=== PATIENT | female | born 1980 | race Hispanic/Latino ===

== ENCOUNTER 2017-11-18 19:27 | Emergency (ER) | payer OTHER ==
[2017-11-18 20:18] LABS: #Eosinphils 0.2 thou/uL (0.0-0.7); #Lymphocytes 1.4 thou/uL (1.20-3.40); #Monocytes 0.4 thou/uL (0.11-0.59); %Basophils 0.1 % (0.0-1.0); %Eosinophils 2.2 % (0.0-10.0); %Lymphocytes 17.9 % (21.0-51.0); %Monocytes 4.6 % (0.0-10.0); %Neutrophils 75.2 % (42.0-75.0); Hemoglobin 11.8 g/dL (12.0-16.0); Mean Corpuscular HGB CONC 36.6 g/dL (32.0-36.0); Mean Corpuscular Hemoglobin 32.4 pg (27.0-31.0); Mean Corpuscular Volume 88.7 fl (81.0-99.0); Mean Platelet Volume 6.2 fL (7.4-10.4); Platelet Count 252 thou/uL (130-400); RBC Distribution Width 11.9 % (11.5-14.5); Red Blood Cell (RBC) Count 3.65 mill/uL (4.20-5.40)
[2017-11-18 20:36] LABS: Bilirubin Negative (Negative); Blood, Urine Small (Negative); Clarity CLEAR (Clear); Glucose, Urine (Dipstick) Negative (Negative); Leukocyte Negative (Negative); Nitrite Negative (Negative); Protein, Urine (Dipstick) Negative (Neg-Trace); Specific Gravity, Urine 1.027 (1.002-1.036)
[2017-11-18 20:38] LABS: Bacteria/HPF Rare-Few HPF (None Seen); Hyaline Casts/LPF 0-3 HYALINE CAST LPF (0-3 Hyaline); Pathc Cast-AUWi Flag 0.29 (0-2.49); Squamous Epithelial 0-3 HPF (0-3); WBC/HPF 0-3 HPF (0-3)
--- NOTE | 2017-11-18 21:57 | ULT ---
OB ULTRASOUND: INDICATIONS: patient with vaginal spotting. FINDINGS: There is a live intrauterine gestation with cardiac activity documented at 145 beats per minute . Sonographic imaging corresponds to an approximately 15 week 4 day gestational age. motion i s noted by the assistant credit manager. IMPRESSION: Live intrauterine gestation, as discussed above. Age appropriate imaging followup is recommended. POS: JESU
== END 2017-11-18 23:04 | disposition home or self-care (01) ==
LOC: ERS 19:27
DX: O20.0 Threatened abortion (principal); Z3A.16 16 weeks gestation of pregnancy
CPT/HCPCS: 76815; 81003; 81015; 84702; 85025; 86900; 86901

== ENCOUNTER 2018-04-14 23:59 | Day surgery (SDC) | payer SELFPAY ==
--- NOTE | 2018-04-15 01:41 | PDOC.LDHP ---
Labor and Delivery H&P Chief complaint: other (dysuria) HPI: 37 yo @ 36.3wks by 9 wk tiffanie presents with dysuria since 1800 on . She endorses some hematuria as well. Denies fever, chills, n/v/d. She endorses back pain bilaterally that also started this afternoon. Dating criteria: first trimester ultrasound (9wk) Grav: 4 Para: 2 (2011) OB History Details: 2 prior csections -first was for breech presentation -second was a repeat section Current complications: other (advanced maternal age) Abnormal US findings: No (anterior fundal placenta) Past Medical History: none Current medications: pre- vitamins Previous surgical history: low tranverse CS (x2) Social history: none - Physical Exam Vital signs reviewed and normal: yes General: NAD, resting Heart: RRR Lungs: CTAB Abdomen: gravid (suprapubic tenderness) Extremeties: no edema [place] contractions every: irregular - Vaginal Exam cm dilated: 1 Effacement: 25% Station: -3 - OB Labs Blood type: O RH: positive Antibody Screen: negative HIV: negative RPR: negative HEPSAg: negative 1 hour GCT: negative (137) GBS: unknown Urine drug screen: not done Rubella: immune Additional Labs: gonorrhea/chlamydia negative prior UTI grew gram negative bacilli pap nilm with negative HPV - Plan -: 37 yo @ 36.3wks by 9 wk tiffanie presents with dysuria: #sIUP #suspected UTI -UA and culture ordered and VP3. -Likely a UTI, will send in abx pending UA. <Fannie Velasquez - Last Filed: 04/15/18 03:14> <Betty Caro - Last Filed: 04/16/18 16:19> Allergies/Adverse Reactions: Allergies Allergy/AdvReac Type Severity Reaction Status Date / Time No Known Allergies Allergy Verified 04/15/18 00:28 Review of Systems - Review of Systems Constitutional: denies: chills, fever EENTM: reports: no symptoms reported Respiratory: reports: no symptoms reported Cardiology: reports: no symptoms reported Gastrointestinal/Abdominal: reports: abdominal pain (suprapubic). denies: diarrhea, nausea Genitourinary: reports: dysuria, frequency, pain Musculoskeletal: reports: back pain (bilateral) Skin: reports: no symptoms reported Neurological: reports: no symptoms reported Endocrine: reports: no symptoms reported Hematologic/Lymphatic: reports: no symptoms reported <Fannie Velasquez - Last Filed: 04/15/18 03:14> Attending Addendum - Attending Addendum Date/Time: 04/16/18 2329 I personally evaluated the patient and discussed the management with Dr. Velasquez. I agree with the History, Examination, Assessment and Plan documented above. <Betty Caro - Last Filed: 04/16/18 16:19>
[2018-04-15 02:08] LABS: Bilirubin Negative (Negative); Blood, Urine Trace (Negative); Clarity CLEAR (Clear); Glucose, Urine (Dipstick) Negative (Negative); Leukocyte Negative (Negative); Nitrite Negative (Negative); Protein, Urine (Dipstick) Negative (Neg-Trace); Specific Gravity, Urine 1.012 (1.002-1.036)
[2018-04-15 02:11] LABS: Bacteria/HPF None Seen HPF (None Seen); Hyaline Casts/LPF 0-3 HYALINE CAST LPF (0-3 Hyaline); Pathc Cast-AUWi Flag 0.58 (0-2.49); Squamous Epithelial 0-3 HPF (0-3); WBC/HPF 0-3 HPF (0-3)
== END 2018-04-15 03:51 | disposition home or self-care (01) ==
LOC: L&D/OP 23:59
PROVIDERS: ATTEND Obstetrics & Gynecology
DX: O99.89 Other specified diseases and conditions complicating pregnancy, childbirth and the puerperium (principal); R30.0 Dysuria; Z3A.36 36 weeks gestation of pregnancy
CPT/HCPCS: 51701; 81001; 87086; 87480; 87510; 87660; 99285; A4353

== ENCOUNTER 2018-05-02 20:11 | Inpatient (IN) | payer MEDICAID, OTHER, SELFPAY ==
[2018-05-02 20:44] VITALS: BMI 31.5
[2018-05-02 21:03] LABS: Amnisure Test RUPTURE DETECTED (No Rupture)
[2018-05-02 21:04] LABS: Amnisure Internal Control QC ACCEPTABLE (ACCEPTABLE)
[2018-05-02] MEDS ORDERED: Promethazine HCl 25 MG/ML VIAL IM PRN ×2 (21:20→23:11)
[2018-05-02] MEDS ORDERED: Ondansetron PF 4 MG/2 ML Vial IVP PRN ×2 (21:20→23:11)
[2018-05-02 21:54] LABS: Hemoglobin 9.9 g/dL (12.0-16.0); Mean Corpuscular HGB CONC 33.7 g/dL (32.0-36.0); Mean Corpuscular Hemoglobin 28.5 pg (27.0-31.0); Mean Corpuscular Volume 84.5 fL (78.0-98.0); Mean Platelet Volume 8.7 fL (7.4-10.4); Platelet Count 228 thou/uL (130-400); RBC Distribution Width 12.4 % (11.5-14.5); Red Blood Cell (RBC) Count 3.48 mill/uL (4.20-5.40)
[2018-05-02] MEDS ORDERED: Lactated Ringer's 1,000 ML IV SCH (22:00)
[2018-05-02] MEDS ORDERED: Bicitra 30 ML UDCUP PO SCH ×3 (22:00→22:15)
[2018-05-02] MEDS ORDERED: CEFAZOLIN 2 GM/50 ML BAG ONE (22:05)
[2018-05-02] MEDS ORDERED: CEFAZOLIN/Water 2 GM/20 ML SYRINGE SLOW IVP SCH (22:15)
[2018-05-02] MEDS ORDERED: Morphine PF 1 MG/ML SYR ONE (22:18)
[2018-05-02] MEDS ORDERED: Lidocaine 1% PF 5 ML VIAL ONE (22:18)
[2018-05-02] MEDS ORDERED: Dexamethasone 4 mg/ml Vial ONE (22:18)
[2018-05-02] MEDS ORDERED: Oxytocin 10 UNITS/ML VIAL ONE ×2 (22:18→23:28)
[2018-05-02] MEDS ORDERED: Ondansetron PF 4 MG/2 ML Vial ONE (22:18)
[2018-05-02] MEDS ORDERED: PHENYLEPHRINE-NS 100 MCG/ML 10 ML SYRINGE ONE (22:18)
[2018-05-02] MEDS ORDERED: Ketorolac Tromethamine 30 MG/ML VIAL ONE (22:18)
[2018-05-02] MEDS ORDERED: Bupivacaine 0.75% W/DEXTROSE 8.25% 2 ML AMP ONE (22:18)
--- NOTE | 2018-05-02 22:19 | PDOC.FPROB ---
FMR OB H&P: HPI - History of Present Illness Chief Complaint: Contractions History of Present Illness: This is a 37 yo who presents to OBT with LOF and contractions. Found to have +amnisure and dilated to 3 cm with painful contractions. No f/c/n/v/ ruq or carmen pain or headaches. FMR OB H&P: Current - OB Labs Blood type: O RH: positive Antibody Screen: negative HIV: negative RPR: negative HepBsAg: negative FMR OB H&P: History - Past Medical History PMH: none - OB History OB History: previous cs x 2. 1st for breech 2nd for repeat. - [employer] History [employer] ME[employer] History: noncontributory - Surgical History Sx History: previous ltcs x 2 - Social History Social History: denies darvin - Family History Family History: noncontributory FMR OB H&P: Medications - Current Home Medications: Medication Instructions Recorded Confirmed Type Pnv No.95/Ferrous Fum/Folic AC 1 tablet PO DAILY 04/15/18 04/15/18 History [ Tablet] Allergies/Adverse Reactions: Allergies Allergy/AdvReac Type Severity Reaction Status Date / Time No Known Allergies Allergy Verified 05/02/18 20:32 FMR OB H&P: ROS - Review of Systems General: denies: fever/chills, fatigue Eyes: denies: eye pain, vision changes Cardiovascular: denies: chest pain, palpitation Respiratory: denies: cough, congestion Gastrointestinal: reports: abdominal pain (ctx) Genitourinary (Female): reports: vaginal bleeding Musculoskeletal: denies: pain, stiffness Neurologic: denies: numbness, syncope, weakness Integumentary: denies: rash, discoloration FMR OB H&P: Vital Signs - Maternal Vital signs: Vital Signs - First Documented Temp Pulse Resp BP 98.5 F 46 L 18 138/66 05/02/18 20:30 05/02/18 20:30 05/02/18 20:30 05/02/18 20:30 - Heart Tones Baseline: 130 Variability: moderate Acceleration: present Deceleration: absent Category: category 1 FMR OB H&P: Physical Exam - Physical Exam General: awake, alert and oriented HEENT: normocephalic and atraumatic Heart: RRR, no edema General: CTAB, no respiratory distress Abdomen: soft, gravid Skin: no rash, good tugor FMR OB H&P: Results - Labs Lab results: Laboratory Results - last 24 hr 05/02/18 05/02/18 20:53 21:04 WBC 7.0 RBC 3.48 L Hgb 9.9 L Hct 29.4 L MCV 84.5 MCH 28.5 MCHC 33.7 RDW 12.4 Plt Count 228 MPV 8.7 Amnio Swab Test RUPTURE DETECTED H FMR OB H&P: A/P Disposition: Plan for repeat section. Anesthesia notified. Discussed r/b/a including pain/bleeding/infection/damage to internal organs/transfusion/repeat operation/prolonged hospitalization of repeat and patient voiced understanding and desired to proceed. Discussion: Date/Time: 05/02/182217 This H&P was discussed with [] and [] who agree with the above documentation and plan.
[2018-05-02] MEDS ORDERED: ePHEDrine/0.9% NaCl/PF SYRINGE 50 mg/10 ml ONE (22:37)
[2018-05-02 23:04] LABS: Syphilis Antibody Nonreactive (Nonreactive); Syphilis Antibody Index 0.06 S/CO (<1.00 Non-Reactive)
[2018-05-02] MEDS ORDERED: HYDROmorphone 2 MG/ML VIAL SLOW IVP PRN (23:11)
[2018-05-02] MEDS ORDERED: Eucerin (Mineral Oil/Petrolatum,White) 30 gm Jar TOP PRN (23:11)
[2018-05-02] MEDS ORDERED: Meperidine HCl/PF 25 MG/ML VIAL SLOW IVP PRN (23:11)
[2018-05-02] MEDS ORDERED: L&D-Morphine 4 MG/ML VIAL SLOW IVP PRN (23:11)
[2018-05-02] MEDS ORDERED: Naloxone HCl 0.4 mg/ml Vial IV PRN (23:11)
[2018-05-02] MEDS ORDERED: diphenhydrAMINE 50 MG/ML VIAL IVP PRN (23:11)
[2018-05-02] MEDS ORDERED: Ketorolac Tromethamine 30 MG/ML VIAL IVP PRN (23:11)
[2018-05-02] MEDS ORDERED: Promethazine HCl 25 MG SUPP PR PRN (23:11)
[2018-05-02] MEDS ORDERED: Ondansetron HCl/PF 4 MG/2 ML Vial IVP PRN (23:11)
[2018-05-02] MEDS ORDERED: Naloxone HCl 0.4 mg/ml Vial IVP PRN ×2 (23:11)
[2018-05-02] MEDS ORDERED: Ketorolac Tromethamine 30 MG/ML VIAL IVP SCH (23:15)
[2018-05-02] MEDS ORDERED: Communication Order-Pharmacy FS SCH (23:15)
[2018-05-02] MEDS ORDERED: Fentanyl 100 MCG/2 ML VIAL ONE (23:23)
--- NOTE | 2018-05-02 23:50 | PDOC.OPDEL ---
OB Operative/Delivery Note Delivery Dr/Surgeon: Archie Velasquez Assist: Pre-Delivery Diagnosis: active labor, ruptured membrane Procedure/Post Delivery Dx: primary low transverse CS Weeks gestation: 38 (38.5) Anesthesia: spinal - Findings A Sex: male Weight: 2.995 kg - 1 min: 8 - 5 min: 8 - Additional Findings/Plan Placenta delivered: spontaneous findings: low transverse hysterotomy without extension Estimated blood loss: 1020 Compilations/Other Findings: Date of Procedure: 05/03/18 Resident Surgeon: Ron Attending Surgeon: Pope Almanza Procedure: Repeat low transverse caesarean section Preoperative Diagnosis: 1)Term intrauterine 2)Previous X2 3)AMA Postoperative Diagnosis: 1)Term intrauterine , delivered 2)Previous X2 3)AMA Anesthesia: spinal Indications: The patient is a 37 year old G4,P2012 @ 38.5wks female who presents for active labor and SROM, admitted for medically indicated repeat section. Procedure in Detail: After risks, benefits, and alternatives were explained to the patient, she gave informed consent. Pre-operative antibiotics included Cefazolin 2 gram IV. The patient was taken to the operating room and spinal anesthesia was initiated. She was placed in the supine position with a left tilt and prepped and draped in usual sterile fashion. A Pfannenstiel incision was made with a scalpel and carried down to the level of the fascia which was sharply nicked. The fascial cut was extended bilaterally with Gonzalez sissors. The inferior and superior edges of the cut fascial edges were elevated with Florinda clamps and the underlying rectus muscles were sharply and bluntly dissected free. The recti were divided digitally and retracted manually. The peritoneum was entered bluntly and retracted manually. Bladder blade was placed. Gross adhesions noted upon entering the peritoneum. A left bladder adhesion to the uterus was noted. Bladder flap was created with Metzenbaum scissors. A low transverse score was made with the scalpel and the uterus was entered in the midline with the scalpel. Clear fluid was seen. The hysterotomy was extended manually. The was noted to be vertex and was delivered by fundal pressure. Mouth and nares were bulb suctioned. Cord clamped and cut and grossly normal male infant was handed to waiting nurse. Cord blood was obtained. Placenta was spontaneously extracted, found to be intact with 3 vessel cord and discarded. The uterus was externalized and the endometrium was curetted with a dry lap. The bladder blade was replaced and the uterus was closed with a running locking #1 Monocryl suture. Following this two figure of eight stitches were thrown using #1 Monocryl and hemostasis obtained. Methylene blue was used to irrigate the bladder and the bladder was found to be intact without leakage of fluid. The uterus was internalized and the hysterotomy was again noted to be hemostatic. The fascia was closed with a running non-locking 0-PDS suture. The subcutaneous tissue was irrigated and there were several bleeders that were easily bovied with good hemostasis. The skin was approximated with lawson and a pressure dressing was placed. All counts were correct. The patient tolerated the procedure well and was taken to the recovery room in stable condition. Estimated Blood Loss: 1020 Complications: None Findings: Grossly normal male with Apgars of 9 and 9. Grossly normal placenta with 3 vessel cord discarded. Drains: Hamm to gravity draining clear urine. Post delivery plan: recovery in LICU
[2018-05-03] MEDS ORDERED: Promethazine HCl 25 MG/ML VIAL ONE (00:16)
[2018-05-03 00:48] LABS: HIV 1/2 INDEX 0.09 S/CO (<1.00)
[2018-05-03 01:48] LABS: HIV (1/2) Antibody/Antigen NonReactive (NonReactive)
[2018-05-03] MEDS ORDERED: Misoprostol 200 MCG TAB PR PRN (02:16)
[2018-05-03] MEDS ORDERED: Bisacodyl 10 MG SUPP PR PRN (02:16)
[2018-05-03] MEDS ORDERED: NS / Oxytocin 40 units/1000ml 1,000 ML IV SCH (02:16)
[2018-05-03] MEDS ORDERED: Ondansetron PF 4 MG/2 ML Vial IVP PRN (02:16)
[2018-05-03] MEDS ORDERED: Simethicone Chewable 80 MG TAB PO PRN (02:16)
[2018-05-03] MEDS ORDERED: Acetaminophen 325 MG TAB PO PRN (02:16)
[2018-05-03] MEDS ORDERED: Lanolin Ointment 7 GM TUBE TOP PRN (02:16)
[2018-05-03] MEDS ORDERED: diphenhydrAMINE 25 MG CAP PO PRN (02:16)
[2018-05-03] MEDS ORDERED: HYDROcodone/Acetaminophen 5/325 mg Tablet PO PRN ×2 (02:16)
--- NOTE | 2018-05-03 03:35 | PDOC.PP ---
Post Progress Note Post Day #: 1 Subjective: Pt states her pain is much better controlled. She states that she has been nauseous with some dry heaving. She denies dyspnea, chest pain, or SOB. She does report feeling slightly dizzy. PO intake tolerated: no Flatus: no Ambulation: no Vital Signs (12 hours) Temp Pulse Resp BP Pulse Ox 05/03/18 03:17 97.5 F L 71 18 112/75 05/03/18 02:05 97.9 F 60 20 128/69 100 05/02/18 20:30 98.5 F 46 L 18 138/66 Weight Weight 70.76 kg - Physical Examination General: NAD Cardiovascular: no m/r/g, RRR Respiratory: clear to auscultation bilaterally, non-labored breathing Abdominal: + bowel sounds, no distention, appropriately TTP Extremities: negative homans (B) Neurological: no gross focal deficits Psychiatric: A&Ox3, normal affect Result Diagrams: 05/02/18 21:04 Additional Labs: Post Labs Blood Type O POSITIVE 05/02/18 21:04 (1) Term delivered Code(s): O80 - ENCOUNTER FOR FULL-TERM UNCOMPLICATED DELIVERY Status: Acute - Assessment/Plan This is a 37 yo G4 now P3013 who delivered at 38.5wks. rLTCS -Pt. has been moved to PP and is receiving pitocin following delivery. Pt. has ibuprofen, tylenol, and norco for pain control. We will continue routine pp care.
[2018-05-03] MEDS ORDERED: Lactated Ringer's 1,000 ML IV SCH (05:30)
[2018-05-03] MEDS: Ibuprofen 800 MG TAB PO SCH ×3 (05:34→21:53)
[2018-05-03 06:02] LABS: Hemoglobin 8.2 g/dL (12.0-16.0); Mean Corpuscular HGB CONC 31.8 g/dL (32.0-36.0); Mean Corpuscular Hemoglobin 27.2 pg (27.0-31.0); Mean Corpuscular Volume 85.6 fL (78.0-98.0); Mean Platelet Volume 8.2 fL (7.4-10.4); Platelet Count 216 thou/uL (130-400); RBC Distribution Width 12.3 % (11.5-14.5); White Blood Cell (WBC) Count 17.6 thou/uL (4.8-10.8)
[2018-05-03] MEDS ORDERED: Adacel (T-DAP) 0.5 ML VIAL IM ONE (09:00)
[2018-05-03] MEDS ORDERED: Prenatal Vitamin 1 TAB PO SCH (09:00)
[2018-05-03] MEDS: Ferrous Sulfate 325 MG TAB PO SCH ×2 (10:10→17:20)
[2018-05-03] MEDS: Prenatal Vitamin 1 TAB PO SCH (10:10)
[2018-05-03] MEDS: Docusate Calcium (SURFAK) 240 MG CAP PO SCH ×2 (10:11→20:23)
[2018-05-04] MEDS: Ibuprofen 800 MG TAB PO SCH ×3 (05:23→22:08)
--- NOTE | 2018-05-04 08:34 | PDOC.PP ---
Post Progress Note Post Day #: 2 Subjective: 37 yo now 3013 s/p repeat LTCS X3. Did well overnight. States pain is controlled. Has a bruise developing below her incision and endorses mild tenderness but vitals are wnl. PO intake tolerated: yes Flatus: yes Ambulation: yes Vital Signs (12 hours) Temp Pulse Resp BP Pulse Ox 05/04/18 08:01 98.3 F 78 20 106/62 100 05/04/18 05:25 98.4 F 82 18 112/65 97 05/03/18 23:25 98.5 F 79 20 120/58 L 99 Weight Weight 70.76 kg - Physical Examination General: NAD Cardiovascular: no m/r/g, RRR Respiratory: clear to auscultation bilaterally Abdominal: + bowel sounds, appropriately TTP Skin: CS incision dry & intact Deviation from normal: 2 inch ecchymoses below incision, no fluctuance, mildly tender to palpation Neurological: no gross focal deficits Psychiatric: A&Ox3, normal affect Result Diagrams: 05/03/18 05:28 Additional Labs: Post Labs Blood Type O POSITIVE 05/02/18 21:04 (1) AMA (advanced maternal age) multigravida 35+ Code(s): O09.529 - SUPERVISION OF ELDERLY MULTIGRAVIDA, UNSPECIFIED TRIMESTER Status: Acute (2) S/P repeat low transverse Code(s): Z98.891 - HISTORY OF UTERINE SCAR FROM PREVIOUS SURGERY Status: Acute (3) Term delivered Code(s): O80 - ENCOUNTER FOR FULL-TERM UNCOMPLICATED DELIVERY Status: Acute - Assessment/Plan #sIUP, delivered #repeat LTCS x3 #AMA Plan: -Continue pain control with mario motrin and norco prn; ice packs for incision site as well prn. Continue to encourage ambulation, advance diet as tolerated. Monitor I/O's. Likely dc tomorrow am. Ecchymoses below incision, increased from yesterday but no fluctuance and mildly tender to palpation. Will continue to monitor with ice packs. <Fannie Velasquez - Last Filed: 05/04/18 08:45> Vital Signs (12 hours) Temp Pulse Resp BP Pulse Ox 05/04/18 11:18 98.3 F 76 20 102/53 L 05/04/18 08:01 98.3 F 78 20 106/62 100 05/04/18 05:25 98.4 F 82 18 112/65 97 Weight Weight 70.76 kg Result Diagrams: 05/03/18 05:28 Additional Labs: Post Labs Blood Type O POSITIVE 05/02/18 21:04 <Lit Lee - Last Filed: 05/04/18 15:26> Attending Addendum - Attending Addendum Date/Time: 05/04/18 4618 I personally evaluated the patient and discussed the management with Dr. Ortiz. Doing well s/p repeat LTC/S. Wound looks fine, extensive superficial ecchymosis , no sign of wound hematoma/seroma/infection. Continue to advance diet & activity as tolerated. Offer patient abdominal binder. <Lit Lee - Last Filed: 05/04/18 15:26>
[2018-05-04] MEDS: Docusate Calcium (SURFAK) 240 MG CAP PO SCH ×2 (09:26→22:08)
[2018-05-04] MEDS: Prenatal Vitamin 1 TAB PO SCH (09:26)
[2018-05-04] MEDS: Ferrous Sulfate 325 MG TAB PO SCH ×2 (09:26→18:27)
[2018-05-05] MEDS: Ibuprofen 800 MG TAB PO SCH (06:19)
[2018-05-05 07:40] VITALS: BP 106/54; TEMP 97.9
--- NOTE | 2018-05-05 08:12 | PDOC.PP ---
Post Progress Note Post Day #: 3 Subjective: 37 yo now 3013 s/p repeat LTCS X3. Did well overnight. States pain is controlled. PO intake tolerated: yes Flatus: yes Ambulation: yes Vital Signs (12 hours) Temp Pulse Resp BP Pulse Ox 05/05/18 07:39 97.9 F 74 16 106/54 L 98 Weight Weight 70.76 kg - Physical Examination General: NAD Cardiovascular: no m/r/g, RRR Respiratory: clear to auscultation bilaterally, non-labored breathing Abdominal: + bowel sounds, lochia (minimal), appropriately TTP Deviation from normal: ecchymosis above and below the incision, no fluctuance, mildly tender Fundus firm & at: umbilicus-2 Skin: CS incision dry & intact Neurological: no gross focal deficits Psychiatric: A&Ox3, normal affect Result Diagrams: 05/03/18 05:28 Additional Labs: Post Labs Blood Type O POSITIVE 05/02/18 21:04 (1) AMA (advanced maternal age) multigravida 35+ Code(s): O09.529 - SUPERVISION OF ELDERLY MULTIGRAVIDA, UNSPECIFIED TRIMESTER Status: Acute (2) S/P repeat low transverse Code(s): Z98.891 - HISTORY OF UTERINE SCAR FROM PREVIOUS SURGERY Status: Acute (3) Term delivered Code(s): O80 - ENCOUNTER FOR FULL-TERM UNCOMPLICATED DELIVERY Status: Acute - Assessment/Plan #sIUP, delivered #repeat LTCS x3 #AMA Plan: -Continue pain control with mario motrin and norco prn; ice packs for incision site as well prn.. Ecchymosis above and below incision, increased from yesterday but no fluctuance and mildly tender to palpation. Will continue to monitor with ice packs. Okay to dc today with follow-up at [facility] on Tuesday for staple removal. Will send motrin and tramadol for pain control. <Fannie Velasquez - Last Filed: 05/05/18 08:12> Vital Signs (12 hours) Temp Pulse Resp BP Pulse Ox 05/05/18 07:39 97.9 F 74 16 106/54 L 98 Weight Weight 70.76 kg Result Diagrams: 05/03/18 05:28 Additional Labs: Post Labs Blood Type O POSITIVE 05/02/18 21:04 <Lit Lee - Last Filed: 05/05/18 14:26> Attending Addendum - Attending Addendum Date/Time: 05/05/18 1422 I personally evaluated the patient and discussed the management with Dr. Ortiz Doing well, ambulating. Bonding well with babe. Would healing. Ecchymosis noted previously. Reliable pt. given detailed f/u instructions for wound care and staple removal. Has Rx for pain med. <Lit Lee - Last Filed: 05/05/18 14:26>
[2018-05-05] MEDS: Docusate Calcium (SURFAK) 240 MG CAP PO SCH (08:16)
[2018-05-05] MEDS: Prenatal Vitamin 1 TAB PO SCH (08:16)
[2018-05-05] MEDS: Ferrous Sulfate 325 MG TAB PO SCH (08:16)
== END 2018-05-05 13:40 | disposition home or self-care (01) | DRG 788 ==
LOC: L&D/OP 20:11 → L&D 22:11 → 3SE 05-03 02:10
PROVIDERS: ADMIT Family Medicine; ATTEND Family Medicine
PROC: 10D00Z1 Extraction of Products of Conception, Low, Open Approach (ICD-10-PCS; principal; 2018-05-02)
PROC: 4A0HXCZ Measurement of Products of Conception, Cardiac Rate, External Approach (ICD-10-PCS; 2018-05-02)
DX: O42.02 Full-term premature rupture of membranes, onset of labor within 24 hours of rupture (principal); O34.211 Maternal care for low transverse scar from previous cesarean delivery; Z3A.38 38 weeks gestation of pregnancy; Z37.0 Single live birth
CPT/HCPCS: 36415; 51702; 84112; 85027; 86780; 86850; 86900; 86901; 87389; 99285; J1100; J1885; J2001; J2274; J2405; J2550; J2590; J3010; J3490; Q9968

== ENCOUNTER 2020-05-12 21:22 | Inpatient (IN) | payer MEDICAID, OTHER, SELFPAY ==
[2020-05-12 21:44] VITALS: BMI 30.8
[2020-05-12] MEDS ORDERED: hydrALAZINE 20 MG/ML VIAL SLOW IVP PRN (22:14)
[2020-05-12] MEDS ORDERED: Promethazine HCl 25 MG/ML VIAL IM PRN (22:14)
[2020-05-12] MEDS ORDERED: Ondansetron PF 4 MG/2 ML Vial IVP PRN (22:14)
[2020-05-12] MEDS ORDERED: Lactated Ringer's 1,000 ML IV SCH (22:15)
--- NOTE | 2020-05-12 22:19 | PDOC.FPROB ---
FMR OB H&P: HPI - History of Present Illness Chief Complaint: Contractions Indentification: 39yo at 38.3wks by 21.6wk US History of Present Illness: 39yo at 38.3wks by 21.6wk US presents for contractions reports 5min apart. Denies LOF, VB. Endorses FM. Primary Care Physician: Yuni Vargas MD FMR OB H&P: Current - Care : 5 Para: 3013 Gestational age: 38.3wks Due date: 05/23/20 Dating Criteria: 21.6wk US Course/Complications: AMA, Hx of LTCS x3, A1GDM - OB Labs Blood type: O RH: positive Antibody Screen: negative HIV: negative RPR: negative HepBsAg: negative Rubella: immune Quad screen: unknown (declined) Gonorrhea: negative Chlamydia: negative 1 hour gtt: 2hr: 84/168/171 GBS: negative FMR OB H&P: History - Past Medical History PMH: Unremarkable - OB History OB History: Prior C/S x3, with adhesions on last C/S - Surgical History Sx History: Denies - Social History Social History: Denies tobacco, alcohol, drug use - Family History Family History: Noncontributory FMR OB H&P: Medications - Current Home Medications: Medication Instructions Recorded Confirmed Type Pnv No.95/Ferrous Fum/Folic AC 1 tablet PO DAILY 04/15/18 05/12/20 History [ Tablet] Ferrous Sulfate [Feosol] 325 mg PO BID-WM #28 tab 05/05/18 05/12/20 Rx Allergies/Adverse Reactions: Allergies Allergy/AdvReac Type Severity Reaction Status Date / Time No Known Allergies Allergy Verified 05/12/20 21:45 FMR OB H&P: ROS - Review of Systems General: denies: fever/chills, fatigue Eyes: denies: vision changes, floaters ENT: denies: nasal congestion, rhinorrhea, sore throat Cardiovascular: denies: chest pain, edema Respiratory: denies: cough, congestion, shortness of breath Gastrointestinal: denies: abdominal pain, nausea, vomiting Genitourinary (Female): reports: contractions. denies: dysuria, vaginal discharge, vaginal bleeding Musculoskeletal: denies: pain, swelling Neurologic: denies: seizures, weakness Integumentary: denies: itching, rash FMR OB H&P: Vital Signs - Maternal Vital signs: Vital Signs - First Documented Temp Pulse Resp BP 98.0 F 60 20 145/76 H 05/12/20 21:38 05/12/20 21:38 05/12/20 21:38 05/12/20 21:38 - Heart Tones Baseline: 150 Variability: moderate Acceleration: present Deceleration: early Category: category 1 [place] contractions every: 6-8min FMR OB H&P: Physical Exam - Physical Exam General: NAD, awake, alert and oriented HEENT: normocephalic and atraumatic, MMM, conjunctiva clear, oropharynx clear Neck: supple, trachea midline Heart: RRR, no murmurs/rubs/gallops, no edema General: CTAB, no respiratory distress, good air movement, no rales/rhonchi, no wheezing Abdomen: soft, gravid, non-tender Musculoskeletal: no misalignment/asymmetry, no atrophy Neurological: no focal deficit Skin: no rash, good tugor, capillary refill <2 seconds Lymphatic: no unusual bruising or bleeding Psychiatric: intact recent and remote memory, good judgement and insight, normal mood and affect - Pelvic Exam Vulva: appropriate bri stage, no lesions SVE: 80/-2 Membranes: Intact Presentation: Cephalic by US FMR OB H&P: A/P Disposition: 39yo at 38.3wks by 21.6wk US presents for contractions found to be in labor, admitted for RLTCS sIUP - plan for rLTCS x4, paper reeler notified- Dr Castillo who will assist - Bladder adhesions on last C/S - Anceph for ppx - Cephalic on US A1GDM - Well controlled AMA Hx of C/S x3 Discussion: Date/Time: 05/12/202216 This H&P was discussed with Dr. Obregon who agrees with the above documentation and plan. Addendum - Attending - Attending Attestation Date/Time: 05/13/20 9991 I personally evaluated the patient and discussed the management with Dr. Vargas on 05/12/20 I agree with the History, Examination, Assessment and Plan documented above with any addition or exceptions noted below - 39 yo @38.3 weeks with h/o prior C/S x3, A1 GDM and AMA presented c/o ctx since last night (05/11); worsening today around 5PM. Denies LOF, VB. (+) FM. Denies ORTIZ, visual changes. Afebrile VSS SVE 4/80%/-2 per nurse. Cat 1 FHTs. [place]- ctx q4-5 min A/P: 1) IUP@38.3 weeks in early labor- will proceed with repeat C/S. Anesthesia notified.
[2020-05-12] MEDS ORDERED: Bicitra 30 ML UDCUP PO SCH (22:30)
[2020-05-12] MEDS ORDERED: CEFAZOLIN 2 GM in Premix Bag 1 BAG IVPB SCH (22:30)
[2020-05-12 22:52] LABS: Hemoglobin 10.9 g/dL (12.0-16.0); Mean Corpuscular HGB CONC 33.4 g/dL (32.0-36.0); Mean Corpuscular Volume 83.7 fL (78.0-98.0); Platelet Count 256 thou/uL (130-400); RBC Distribution Width 12.3 % (11.5-14.5); Red Blood Cell (RBC) Count 3.88 mill/uL (4.20-5.40); White Blood Cell (WBC) Count 7.6 thou/uL (4.8-10.8)
[2020-05-12] MEDS ORDERED: Morphine PF 10 MG/10 ML VIAL ONE (23:13)
[2020-05-12] MEDS ORDERED: Fentanyl 100 MCG/2 ML VIAL ONE (23:13)
[2020-05-12] MEDS ORDERED: PHENYLEPHRINE-NS 100 MCG/ML 10 ML SYRINGE ONE (23:14)
[2020-05-12] MEDS ORDERED: Oxytocin 10 UNITS/ML VIAL ONE (23:14)
[2020-05-12] MEDS ORDERED: Ondansetron PF 4 MG/2 ML Vial ONE (23:14)
[2020-05-12] MEDS ORDERED: Azithromycin 500 MG in Sodium Chloride 0.9% 250 ML 250 ML IVPB SCH (23:15)
[2020-05-12 23:30] LABS: Hep B Surf Ag Non-Reactive S/CO (NonReactive); Syphilis Antibody Nonreactive (Nonreactive); Syphilis Antibody Index 0.04 S/CO (<1.00 Non-Reactive)
--- NOTE | 2020-05-12 23:43 | PDOC.OPDEL ---
OB Operative/Delivery Note - Additional Findings/Plan Compilations/Other Findings: Delivering Physician: Dr. Brent Koo Attending: Dr. Elisabeth Obregon Continuity Provider: Dr. Yuni Vargas, present Procedure: Spontaneous Vaginal Delivery Anesthesia: None EBL: 250 ml Pre-op Diagnosis: 1. Term intrauterine in labor 2. A1 GDM 3. Hx of x3 Post-op Diagnosis: 1. Term intrauterine , delivered 2. - Precipitous delivery 3. Same as above Indications: A 39 y/o female presents in active labor Delivery Note: This is 39 yo F @ 38.3wks who delivered a viable F infant at 2322 on 05/12/2020. Pt had been brought back to the OR for a rLTCs due to 3 prior cesareans. During pre-operative preg she SROM'd and began pushing. She was checked and found to be complete and 1+. She was laid down on the table and pushed twice and a vigorous female was precipitously delivered over an intact perineum in the occipitoanterior position. Anterior Shoulder and then remainder of the body delivered. No nuchal cord. The head was held down and mouth and nares were bulb suctioned. Cord clamped after delayed cord clamping and cut and cord blood collected. Placenta delivered intact with a 3 vessel cord noted. Fundal massage was performed and the fundus was firm. The cervix and va janet were inspected and found to be free of lacerations. Infant went to nursery in good condition for routine care. Apgars were 8/9 at 1 & 5 minutes, respectively. Patient tolerated delivery well and went to after routine recovery/care. Addendum - Attending - Attending Attestation Date/Time: 05/13/20 2336 I was present and supervised the of a viable female infant over an intact perineum to this 39 yo @38.3 weeks. Apgars 8/9. No nuchla cord. Placenta delivered spontaneously and intact. 3V cord. EBL 250 mL. Infant and mother in stable condition. Resident- Hanane
[2020-05-12] MEDS ORDERED: Butorphanol Tartrate 1 MG/ML VIAL SLOW IVP PRN (23:50)
[2020-05-13] MEDS ORDERED: NS / Oxytocin 40 units/1000ml 1,000 ML ONE (00:41)
[2020-05-13] MEDS ORDERED: Lanolin Ointment 7 GM TUBE TOP PRN (01:42)
[2020-05-13] MEDS ORDERED: Bisacodyl 10 MG SUPP PR PRN (01:42)
[2020-05-13] MEDS ORDERED: Ondansetron PF 4 MG/2 ML Vial IVP PRN (01:42)
[2020-05-13] MEDS ORDERED: Milk Of Magnesia 30 ML UDCUP PO PRN (01:42)
[2020-05-13] MEDS ORDERED: NS / Oxytocin 40 units/1000ml 1,000 ML IV SCH (01:42)
[2020-05-13] MEDS ORDERED: hydrALAZINE 20 MG/ML VIAL SLOW IVP PRN (01:42)
--- NOTE | 2020-05-13 04:47 | PDOC.PP ---
Post Progress Note Post Day #: 1 Subjective: Pain well controlled. Breast and bottle feeding. Minimal lochia. Has not tried eating yet. PO intake tolerated: yes Flatus: no Ambulation: yes Vital Signs (12 hours) Temp Pulse Resp BP Pulse Ox 05/13/20 02:55 97.8 F 57 L 18 108/59 L 99 05/13/20 01:55 98.0 F 54 L 18 136/68 99 05/12/20 21:38 98.0 F 60 20 145/76 H Weight Weight 71.668 kg - Physical Examination General: NAD Cardiovascular: no m/r/g, RRR Respiratory: clear to auscultation bilaterally, non-labored breathing Abdominal: + bowel sounds, appropriately TTP Fundus firm & at: umbilicus Neurological: no gross focal deficits Psychiatric: A&Ox3, normal affect Result Diagrams: 05/12/20 22:40 Additional Labs: Post Labs Hep Bs Antigen Non-Reactive S/CO (NonReactive) 05/12/20 22:40 Blood Type O POSITIVE 05/12/20 22:40 - Assessment/Plan 39yo now delivered at 38.3wks by 21.6wk US sIUP, PPD #1 - via precipitous on OR table - Continue routine PP care - QBL 165 A1GDM - Well controlled - 2hr GTT 6wks PP AMA Hx of C/S x3
[2020-05-13] MEDS: Ibuprofen 800 MG TAB PO SCH ×3 (05:56→21:48)
[2020-05-13] MEDS: Ferrous Sulfate 325 MG TAB PO SCH ×2 (07:55→18:27)
[2020-05-13] MEDS ORDERED: Adacel (T-DAP) 0.5 ML SYRINGE IM ONE (09:00)
[2020-05-13] MEDS: Prenatal Vitamin 1 TAB PO SCH (09:06)
[2020-05-13] MEDS: Docusate Calcium (SURFAK) 240 MG CAP PO SCH ×2 (09:06→21:48)
[2020-05-13 14:17] LABS: SARS-CoV-2 MS2 Positive; SARS-CoV-2 N Gene Negative; SARS-CoV-2 S Gene Negative; SARS-CoV-2 by NAA Not Detected (NotDetected); SARS-CoV-2 orf1ab Negative
[2020-05-14] MEDS: Ibuprofen 800 MG TAB PO SCH (06:00)
--- NOTE | 2020-05-14 07:15 | PDOC.PP ---
Post Progress Note Post Day #: 2 Subjective: Pain well controlled. Ambulating, tolerating PO, breast and bottle feeding. Minimal lochia. PO intake tolerated: yes Flatus: yes Ambulation: yes Vital Signs (12 hours) Temp Pulse Resp BP Pulse Ox 05/13/20 21:45 98.1 F 64 18 130/88 99 Weight Weight 71.668 kg - Physical Examination General: NAD Cardiovascular: no m/r/g, RRR Respiratory: clear to auscultation bilaterally, non-labored breathing Abdominal: + bowel sounds, appropriately TTP Neurological: no gross focal deficits Psychiatric: A&Ox3, normal affect Result Diagrams: 05/12/20 22:40 Additional Labs: Post Labs Hep Bs Antigen Non-Reactive S/CO (NonReactive) 05/12/20 22:40 Blood Type O POSITIVE 05/12/20 22:40 - Assessment/Plan 39yo now delivered at 38.3wks by 21.6wk US sIUP, PPD #2 - via precipitous on OR table - Continue routine PP care - QBL 172 - Attemptint to breastfeed, would like to have pump in room. - Likely dc home later today A1GDM - Well controlled antepartum - 2hr GTT 6wks PP AMA Hx of C/S x3 Addendum - Attending - Attending Attestation Date/Time: 05/14/20 8106 I personally evaluated the patient and discussed the management with Dr. Vargas. I agree with the History, Examination, Assessment and Plan documented above with any addition or exceptions noted below.
[2020-05-14 07:51] VITALS: BP 120/59; TEMP 97.8
[2020-05-14] MEDS: Prenatal Vitamin 1 TAB PO SCH (07:52)
[2020-05-14] MEDS: Docusate Calcium (SURFAK) 240 MG CAP PO SCH (07:52)
== END 2020-05-14 16:18 | disposition home or self-care (01) | DRG 807 ==
LOC: L&D/OP 21:22 → L&D 23:33 → 3SW 05-13 01:54
PROVIDERS: ADMIT Family Medicine; ATTEND Family Medicine
PROC: 10E0XZZ Delivery of Products of Conception, External Approach (ICD-10-PCS; principal; 2020-05-12)
DX: O62.3 Precipitate labor (principal); Z37.0 Single live birth; Z3A.38 38 weeks gestation of pregnancy; O24.429 Gestational diabetes mellitus in childbirth, unspecified control; Z20.828 Contact with and (suspected) exposure to other viral communicable diseases; O34.211 Maternal care for low transverse scar from previous cesarean delivery; Z79.899 Other long term (current) drug therapy
CPT/HCPCS: 36415; 85027; 86780; 86850; 86900; 86901; 87340; 87635; 99285; J0456; J0595; J0690; J2270; J2405; J3010; J7050; U0003

== ENCOUNTER 2024-04-27 00:01 | Inpatient (IN) | payer MEDICAID, SELFPAY ==
[2024-04-27 01:02] LABS: Bacteria/HPF None Seen HPF (None Seen); Bilirubin Negative (Negative); Blood, Urine 1+ (Negative); CAUTI Indications for Culture Pelvic or flank pain; Clarity Clear (Clear); Glucose, Urine (Dipstick) Normal (Negative); Ketone, Urine Negative (Negative); Leukocyte Negative Leu/uL (Negative); Nitrite Negative (Negative); Protein, Urine (Dipstick) 20 mg/dL (Neg-Trace); Specific Gravity, Urine 1.022 (1.002-1.036); Squamous Epithelial 0-3 HPF (0-3); WBC/HPF 0-3 HPF (0-3)
[2024-04-27 01:10] LABS: Pregnancy Test - Urine (BHCG) Negative (Negative); Pregu Control Background? CLEAR/WHITE (CLR/WHITE); Pregu Control Bar Appear? YES (CONTROL BAR); Specific Gravity 1.022 (1.002-1.036)
[2024-04-27 01:11] LABS: Urine Culture Reflex No No
[2024-04-27 01:51] LABS: #Basophils 0.05 10x3/uL (0.0-0.2); %Basophils 0.4 % (0.0-1.0); %Lymphocytes 18.6 % (21.0-51.0); %Monocytes 6.1 % (0.0-10.0); %Neutrophils 72.5 % (42.0-75.0); Hematocrit 27.8 % (36.0-47.0); Hemoglobin 7.9 g/dL (12.0-16.0); Mean Corpuscular HGB CONC 28.4 g/dL (32.0-36.0); Mean Corpuscular Hemoglobin 19.7 pg (27.0-31.0); Mean Corpuscular Volume 69.3 fL (78.0-98.0); Mean Platelet Volume 8.9 fL (7.4-10.4); Platelet Count 275 10x3/uL (130-400); RBC Distribution Width 16.5 % (11.5-14.5); Red Blood Cell (RBC) Count 4.01 mill/uL (4.20-5.40)
[2024-04-27 02:11] LABS: ALT (SGPT) 23 U/L (8-55); AST (SGOT) 20 U/L (5-34); Albumin 3.3 g/dL (3.5-5.0); Alkaline Phosphatase 84 U/L (40-110); Anion Gap 13 mmol/L (10-20); BUN (Urea Nitrogen) 9 mg/dL (7.0-18.7); Bilirubin, Total 0.7 mg/dL (0.2-1.2); Calc. Creatinine Clearance 0 mL/min (70-130); Calcium 8.1 mg/dL (7.8-10.44); Carbon Dioxide 19 mmol/L (22-29); Chloride 109 mmol/L (98-107); Estimated GFR 111; Globulin 3.8 g/dL (2.4-3.5); Glucose 141 mg/dL (70-105); Lipase 26 U/L (8-78); Potassium 3.8 mmol/L (3.5-5.1); Protein, Total 7.1 g/dL (6.0-8.3); Sodium 137 mmol/L (136-145)
[2024-04-27] MEDS ORDERED: Ketorolac Tromethamine 30 MG (1 mL) VIAL ONE (02:39)
[2024-04-27 02:44] LABS: Anisocytosis SLIGHT = 6-15 cells HPF (0-5); Hypochromia SLIGHT = 6-15 cells HPF (0-5); Microcytosis SLIGHT = 6-15 cells HPF (0-5); Platelet Adequacy Comment Platelets Normal; Polychromasia SLIGHT = 2-3 cells HPF (0-2)
[2024-04-27] MEDS ORDERED: Sodium Chloride 0.9% 100 ML ONE (04:56)
[2024-04-27] MEDS ORDERED: Morphine 4 MG/ML VIAL ONE (04:56)
[2024-04-27] MEDS ORDERED: Piperacillin/Tazobactam 4.5 GM VIAL ONE (04:56)
[2024-04-27] MEDS ORDERED: Ondansetron PF 4 MG/2 ML Vial ONE (04:56)
[2024-04-27 08:33] VITALS: BMI 24.7
[2024-04-27] MEDS ORDERED: Acetaminophen 650 MG Suppository PR PRN (09:21)
[2024-04-27] MEDS ORDERED: Acetaminophen 325 MG TAB PO PRN (09:21)
[2024-04-27] MEDS ORDERED: Ondansetron PF 4 MG/2 ML Vial IVP PRN (09:21)
[2024-04-27] MEDS ORDERED: Ondansetron ODT 4 MG TAB PO PRN (09:21)
[2024-04-27] MEDS ORDERED: Electrolyte Replacement Protocol 1 EACH FS SCH (09:30)
[2024-04-27] MEDS ORDERED: Electrolyte Replacement Protocol FS PRN (09:45)
[2024-04-27 10:23] LABS: Iron 15 ug/dL (50-170); Iron Binding Capacity, Total 424 mcg/dL (265-497); Magnesium 2.1 mg/dL (1.6-2.6); Transferrin, Serum 339 mg/dL (180-382)
[2024-04-27] MEDS: Piperacillin/Tazobactam 4.5 GM in Sodium Chloride 0.9% 100 ML IVPB SCH (10:37)
[2024-04-27] MEDS: Potassium Chloride 20 MEQ in Lactated Ringer's 1,000 ML IV SCH (10:37)
[2024-04-27] MEDS: Morphine 2 MG/ML VIAL SLOW IVP PRN (10:41)
[2024-04-27] MEDS ORDERED: Iopamidol 370 76% 100 ML VIAL ONE (13:59)
[2024-04-27] MEDS: Sodium Ferric Gluconate 125 MG in Sodium Chloride 0.9% 100 ML IVPB SCH (15:49)
[2024-04-28 05:40] LABS: #Basophils 0.03 10x3/uL (0.0-0.2); %Basophils 0.4 % (0.0-1.0); %Eosinophils 3.1 % (0.0-10.0); %Lymphocytes 29.4 % (21.0-51.0); %Monocytes 6.8 % (0.0-10.0); Hematocrit 24.9 % (36.0-47.0); Hemoglobin 7.2 g/dL (12.0-16.0); Mean Corpuscular HGB CONC 28.9 g/dL (32.0-36.0); Mean Corpuscular Hemoglobin 19.8 pg (27.0-31.0); Mean Corpuscular Volume 68.4 fL (78.0-98.0); Mean Platelet Volume 8.8 fL (7.4-10.4); Platelet Count 236 10x3/uL (130-400); RBC Distribution Width 16.7 % (11.5-14.5); Red Blood Cell (RBC) Count 3.64 mill/uL (4.20-5.40)
[2024-04-28 05:42] LABS: ALT (SGPT) 20 U/L (8-55); AST (SGOT) 18 U/L (5-34); Albumin 2.8 g/dL (3.5-5.0); Alkaline Phosphatase 62 U/L (40-110); Anion Gap 11 mmol/L (10-20); BUN (Urea Nitrogen) 8 mg/dL (7.0-18.7); Bilirubin, Total 0.9 mg/dL (0.2-1.2); Calc. Creatinine Clearance 120 mL/min (70-130); Carbon Dioxide 21 mmol/L (22-29); Chloride 110 mmol/L (98-107); Estimated GFR 113; Globulin 3.4 g/dL (2.4-3.5); Glucose 87 mg/dL (70-105); Potassium 3.4 mmol/L (3.5-5.1); Protein, Total 6.2 g/dL (6.0-8.3); Sodium 139 mmol/L (136-145)
[2024-04-28 07:43] LABS: Phosphorus 3.2 mg/dL (2.3-4.7)
[2024-04-28] MEDS: Potassium Phosphate 30 MMOL in Sodium Chloride 0.9% 250 ML 250 ML IVPB SCH (09:37)
[2024-04-28] MEDS: Ketorolac Tromethamine 30 MG (1 mL) VIAL IVP PRN (16:43)
[2024-04-29 05:03] LABS: #Basophils 0.03 10x3/uL (0.0-0.2); %Basophils 0.5 % (0.0-1.0); %Eosinophils 6.6 % (0.0-10.0); %Lymphocytes 37.9 % (21.0-51.0); %Monocytes 7.5 % (0.0-10.0); %Neutrophils 46.1 % (42.0-75.0); Hematocrit 26.9 % (36.0-47.0); Hemoglobin 7.6 g/dL (12.0-16.0); Mean Corpuscular HGB CONC 28.3 g/dL (32.0-36.0); Mean Corpuscular Hemoglobin 19.3 pg (27.0-31.0); Mean Corpuscular Volume 68.4 fL (78.0-98.0); Mean Platelet Volume 9.2 fL (7.4-10.4); Platelet Count 282 10x3/uL (130-400); RBC Distribution Width 16.9 % (11.5-14.5); Red Blood Cell (RBC) Count 3.93 mill/uL (4.20-5.40)
[2024-04-29 05:27] LABS: Anion Gap 13 mmol/L (10-20); BUN (Urea Nitrogen) 10 mg/dL (7.0-18.7); Calc. Creatinine Clearance 110 mL/min (70-130); Calcium 8.3 mg/dL (7.8-10.44); Carbon Dioxide 22 mmol/L (22-29); Chloride 109 mmol/L (98-107); Estimated GFR 109; Glucose 95 mg/dL (70-105); Potassium 3.9 mmol/L (3.5-5.1); Sodium 140 mmol/L (136-145)
[2024-04-29 05:46] LABS: Hypochromia SLIGHT = 6-15 cells HPF (0-5); Microcytosis SLIGHT = 6-15 cells HPF (0-5); Platelet Adequacy Comment Platelets Normal; Polychromasia SLIGHT = 2-3 cells HPF (0-2)
[2024-04-29] MEDS: Magnesium 2 GM/50 ML(in water) 2 GM in Premix 1 BAG IVPB SCH (09:16)
[2024-04-29] MEDS: Ferrous Sulfate 325 MG TAB PO SCH (09:17)
[2024-04-30 05:15] LABS: #Basophils 0.05 10x3/uL (0.0-0.2); %Basophils 0.8 % (0.0-1.0); %Eosinophils 6.4 % (0.0-10.0); %Lymphocytes 40.7 % (21.0-51.0); %Monocytes 5.9 % (0.0-10.0); %Neutrophils 45.1 % (42.0-75.0); Hematocrit 28.1 % (36.0-47.0); Hemoglobin 8.2 g/dL (12.0-16.0); Mean Corpuscular HGB CONC 29.2 g/dL (32.0-36.0); Mean Corpuscular Volume 68.7 fL (78.0-98.0); Platelet Count 308 10x3/uL (130-400); RBC Distribution Width 17.3 % (11.5-14.5); Red Blood Cell (RBC) Count 4.09 mill/uL (4.20-5.40)
[2024-04-30 05:21] LABS: Anion Gap 13 mmol/L (10-20); BUN (Urea Nitrogen) 11 mg/dL (7.0-18.7); Calc. Creatinine Clearance 107 mL/min (70-130); Calcium 8.4 mg/dL (7.8-10.44); Carbon Dioxide 20 mmol/L (22-29); Chloride 110 mmol/L (98-107); Estimated GFR 105; Glucose 118 mg/dL (70-105); Magnesium 1.9 mg/dL (1.6-2.6); Sodium 139 mmol/L (136-145)
[2024-04-30] MEDS: Magnesium 2 GM/50 ML(in water) 2 GM in Premix 1 BAG IVPB SCH (08:36)
[2024-04-30 08:41] VITALS: TEMP 98
[2024-04-30 12:40] VITALS: BP 117/71
[2024-05-01] MEDS ORDERED: Saccharomyces boulardii 250 MG CAP PO SCH (09:00)
== END 2024-04-30 15:56 | disposition home or self-care (01) | DRG 392 ==
LOC: ERS 00:01 → SURG A 08:16 → OBSVTOIN 04-28 11:20
PROVIDERS: ADMIT Internal Medicine; ATTEND Family Medicine
DX: K57.32 Diverticulitis of large intestine without perforation or abscess without bleeding (principal); D50.9 Iron deficiency anemia, unspecified; E87.6 Hypokalemia; Z79.899 Other long term (current) drug therapy; Z98.890 Other specified postprocedural states
CPT/HCPCS: 36415; 74177; 80048; 80053; 81001; 81025; 82728; 83540; 83550; 83690; 83735; 84100; 84466; 85025; 86850; 86900; 86901; 96366; 96367; 96374; 96375; 96376; G0378; J1885; J2272; J2405; J2543; J2916; J3475; J3480; J7050; J7120; Q9967